=== PATIENT | male | born 1975 | race Two or more races ===

== ENCOUNTER 2024-01-06 06:16 | Day surgery (SDC) | payer BC ==
[~2024-01-06] VITALS: Ht 188 cm; Wt 95.2 kg
[~2024-01-06 06:16] MED LIST: ANUSOL-HC25 MG PR; DAILY VITAMIN1 EACH PO; METAMUCIL PACK3.4 GM PO; MIDAZOLAM HCL 5 MG/5 ML VIAL IV PRN; TRIAMCINOLONE A15 G1 TOP; fentaNYL citrate 100 MCG/2 ML VIAL IV PRN
[2024-01-06 06:33] VITALS: BP 122/79
[2024-01-06] MEDS ORDERED: TURMERIC500 M2 PO (06:35)
[2024-01-06] MEDS ORDERED: OMEGA 3 FISH O1 EACH PO (06:36)
[2024-01-06] MEDS ORDERED: fentaNYL citrate 100 MCG/2 ML VIAL ONE (06:38)
[2024-01-06] MEDS ORDERED: MIDAZOLAM HCL 5 MG/5 ML VIAL ONE (06:38)
[2024-01-06] MEDS ORDERED: LIDOCAINE HCL 1% 5 ML SDV INJ ONE (07:00)
[2024-01-06] MEDS ORDERED: LACTATED RINGER'S 1,000 ML IV SCH (07:00)
[2024-01-06] MEDS ORDERED: IBLOOD GLUCOSE TEST STRIP 1 EA TEST VI PRN (07:00)
--- NOTE | 2024-01-06 07:35 | NUR ---
PT GONE FOR PROCEDURE. PROVIDED PRAYER.
--- NOTE | 2024-01-06 08:00 | NUR ---
01/06/24 0800 Heavenly Thomson 0745- PT ARRIVES TO PACU RESTING ON LT SIDE, REU, PT AWAKES TO TACTILE STIMULI, ABD SOFT.
--- NOTE | 2024-01-06 08:37 | OR ---
[facility] [address], [place] [address] Signed DATE OF OPERATION: 01/06/2024 SURGEON: Filiberto Robledo MD PREOPERATIVE DIAGNOSES: 1. Rectal bleeding. 2. Hemorrhoids. POSTOPERATIVE DIAGNOSES: 1. Minimal to moderate internal and external hemorrhoids. 2. Minimal sigmoid diverticulosis. PROCEDURE: Colonoscopy without biopsy. ESTIMATED BLOOD LOSS: None. 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 He said two years after starting he has been having some intermittent rectal bleeding and some swollen hemorrhoids. He went to his primary care provider. He is using Metamucil twice a day. He also has Anusol suppositories. He gives no family history of colon cancer or polyps. He was asked to see me as a local general surgeon for colonoscopy. I met with Ana in the office. I gave him a pamphlet on colonoscopy. We reviewed the nature of the test. There is risk including, but not limited to gas bloating, crampy abdominal pain, bleeding, perforation requiring surgery, and missed diagnosis. We also reviewed the written instructions for the bowel prep line by line. He also understands the need for IV conscious sedation. He said his will take him home afterwards today. He has taken today and tomorrow off from work. He had expressed understanding and wished to proceed. PROCEDURE IN DETAIL: Ana was taken into our endoscopy suite and placed in the left lateral decubitus position. He was given a total of 8 mg of Versed and 150 mcg of fentanyl to cover the case. A digital rectal exam was performed and he does have small circumferential external hemorrhoids. He had good sphincter tone. He had excellent perianal hygiene. There were no masses. The adult colonoscope was introduced and advanced all the way around into the cecum under direct visualization of camera without difficulty. His prep was quite excellent. We could easily see the appendiceal orifice and ileocecal valve. Electronically Signed By: FILIBERTO ROBLEDO MD 01/06/24 0837 PATIENT NAME: ANA RIOS OPERATIVE REPORT DATE OF : 73 REPORT #: [id number] PHYSICIAN: FILIBERTO ROBLEDO MD PCP: SOTERO HAYES MD REPORT IS CONFIDENTIAL AND NOT TO BE RELEASED WITHOUT AUTHORIZATION [facility] [address], [place] [address] Signed The scope was then slowly withdrawn. We took several pictures throughout for photodocumentation. He has just a few diverticula in the sigmoid colon. They were small in size, few in number and scattered about. The rectum was unremarkable. Upon retroflexion of the scope, indeed he has two internal hemorrhoids, probably minimal to moderate in size. I suspect these two hemorrhoids that he describes that come in and out intermittently and cause bleeding. After this, the gas was suctioned out. The colonoscope removed. Ana tolerated the procedure quite well. RECOMMENDATIONS: Ana can follow up in 10 years for repeat screening colonoscopy. He is doing well with his conservative measures currently for the hemorrhoids. He is always welcome to come back to the office and visit with me if he consider surgical therapy. Filiberto Robledo MD ALB/MODL /[id number] cc: MD Sotero Mcintosh MD Copies: FILIBERTO ROBLEDO MD, ROBERT D DMD ~ Electronically Signed By: FILIBERTO ROBLEDO MD 01/06/24 0837 PATIENT NAME: ANA RIOS OPERATIVE REPORT DATE OF : 73 REPORT #: [id number] PHYSICIAN: FILIBERTO ROLBEDO MD PCP: SOTERO HAYES MD REPORT IS CONFIDENTIAL AND NOT TO BE RELEASED WITHOUT AUTHORIZATION
[2024-01-06 08:39] VITALS: BP 115/93
== END 2024-01-06 08:35 | disposition home or self-care (01) ==
LOC: DS 06:16
PROVIDERS: ATTEND Colon & Rectal Surgery
PROC: 0DJD8ZZ Inspection of Lower Intestinal Tract, Via Natural or Artificial Opening Endoscopic (ICD-10-PCS; principal; 2024-01-06 07:30)
DX: K64.8 Other hemorrhoids (principal); K64.4 Residual hemorrhoidal skin tags; K57.30 Diverticulosis of large intestine without perforation or abscess without bleeding; E78.00 Pure hypercholesterolemia, unspecified; H04.123 Dry eye syndrome of bilateral lacrimal glands; E55.9 Vitamin D deficiency, unspecified; Z79.899 Other long term (current) drug therapy
CPT/HCPCS: 99153; G0500; J2250; J3010; J7121